=== PATIENT | female | born 1995 | race Caucasian/White ===

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

== ENCOUNTER 2021-09-11 19:36 | Emergency (ER) | payer BC, OTHER ==
[2021-09-11 21:35] LABS: HEMOGLOBIN 11.6 gm/dl (12.3-15.3); RED BLOOD COUNT 3.92 M/UL (4.00-5.10); WHITE BLOOD COUNT 4.9 K/UL (4.5-11.0)
[2021-09-11] MEDS ORDERED: MACROBID 100 M100 MG PO (21:47)
[2021-09-11 22:00] LABS: BUN/CREATININE RATIO 14 (0-10)
== END 2021-09-11 22:37 | disposition home or self-care (01) ==
LOC: ER1 19:36
PROVIDERS: Physician Assistant
DX: O99.892 Other specified diseases and conditions complicating childbirth (principal); R00.2 Palpitations; O23.42 Unspecified infection of urinary tract in pregnancy, second trimester; N39.0 Urinary tract infection, site not specified; J45.909 Unspecified asthma, uncomplicated; Z88.0 Allergy status to penicillin; Z91.013 Allergy to seafood; Z79.899 Other long term (current) drug therapy; Z3A.18 18 weeks gestation of pregnancy
CPT/HCPCS: 80048; 81001; 85025; 87086; 93005; 99285

== ENCOUNTER 2021-12-26 16:44 | Outpatient (CLI) | payer BC, OTHER ==
[~2021-12-26 16:44] MED LIST: MACROBID 100 M100 MG PO
== END 2021-12-26 17:56 | disposition home or self-care (01) ==
LOC: GENOP 16:44
DX: O99.891 Other specified diseases and conditions complicating pregnancy (principal); N89.8 Other specified noninflammatory disorders of vagina; O36.8130 Decreased fetal movements, third trimester, not applicable or unspecified; Z91.013 Allergy to seafood; Z91.018 Allergy to other foods; Z3A.33 33 weeks gestation of pregnancy
CPT/HCPCS: 59025; 81001; 82731; 83518

== ENCOUNTER 2022-01-11 15:47 | Emergency (ER) | payer BC, OTHER | END 2022-01-11 16:52 | disposition home or self-care (01) | LOC: ER1 15:47 | DX: O99.891 Other specified diseases and conditions complicating pregnancy (principal); R07.9 Chest pain, unspecified; R06.02 Shortness of breath; Z3A.36 36 weeks gestation of pregnancy | CPT/HCPCS: 71045; 99284 ==

== ENCOUNTER 2022-02-14 16:21 | Inpatient (IN) | payer BC, OTHER ==
[~2022-02-14] VITALS: Ht 162.6 cm; Wt 84.8 kg
[2022-02-14 17:01] LABS: RED BLOOD COUNT 3.53 M/UL (4.00-5.10)
[2022-02-14] MEDS ORDERED: PROAIR HFA8.5 GM INH (17:48)
[2022-02-15] MEDS ORDERED: FERROUS SULFAT325 MG PO (16:42)
[2022-02-15] MEDS ORDERED: COLACE100 MG PO (16:42)
[2022-02-15] MEDS ORDERED: IBUPROFEN600 MG PO (16:42)
[2022-02-16 06:48] LABS: HEMOGLOBIN 9.7 gm/dl (12.3-15.3)
== END 2022-02-17 16:04 | disposition home or self-care (01) | DRG 807 ==
LOC: GENOP 16:21 → OB 16:28
PROVIDERS: Obstetrics & Gynecology; ADMIT Obstetrics & Gynecology
PROC: 10E0XZZ Delivery of Products of Conception, External Approach (ICD-10-PCS; principal; 2022-02-14)
PROC: 4A1HXCZ Monitoring of Products of Conception, Cardiac Rate, External Approach (ICD-10-PCS; 2022-02-14)
PROC: 3E0234Z Introduction of Serum, Toxoid and Vaccine into Muscle, Percutaneous Approach (ICD-10-PCS; 2022-02-14)
DX: O99.02 Anemia complicating childbirth (principal); Z37.0 Single live birth; D64.9 Anemia, unspecified; Z20.822 Contact with and (suspected) exposure to COVID-19; Z3A.40 40 weeks gestation of pregnancy; Z88.2 Allergy status to sulfonamides; Z91.018 Allergy to other foods; Z82.0 Family history of epilepsy and other diseases of the nervous system; Z81.8 Family history of other mental and behavioral disorders; Z82.3 Family history of stroke; Z83.3 Family history of diabetes mellitus; Z80.9 Family history of malignant neoplasm, unspecified; Z23 Encounter for immunization
CPT/HCPCS: 36415; 81001; 85014; 85018; 85025; 90715; J0595; J2590

== ENCOUNTER 2022-03-01 23:17 | Emergency (ER) | payer BC, OTHER ==
[~2022-03-01 23:17] MED LIST changes: +COLACE100 MG PO; +FERROUS SULFAT325 MG PO; +IBUPROFEN600 MG PO; +PROAIR HFA8.5 GM INH
[2022-03-01 23:51] LABS: HEMOGLOBIN 13.1 gm/dl (12.3-15.3); RED BLOOD COUNT 4.67 M/UL (4.00-5.10)
[2022-03-02 00:15] LABS: BUN/CREATININE RATIO 15 (0-10)
[2022-03-02] MEDS ORDERED: CEPHALEXIN500 M1 PO (01:44)
== END 2022-03-02 03:05 | disposition home or self-care (01) ==
LOC: ER1 23:17
PROVIDERS: Nurse Practitioner
DX: N61.0 Mastitis without abscess (principal)
CPT/HCPCS: 80053; 81001; 83605; 85025; 85652; 86140; 87040; 93005; 96374; 99283; J0696

== ENCOUNTER 2022-04-14 09:37 | Emergency (ER) | payer BC, OTHER ==
[~2022-04-14 09:37] MED LIST changes: +CEPHALEXIN500 M1 PO
[2022-04-14 11:11] LABS: HEMOGLOBIN 11.3 gm/dl (12.3-15.3); RED BLOOD COUNT 4.06 M/UL (4.00-5.10); WHITE BLOOD COUNT 8.9 K/UL (4.5-11.0)
[2022-04-14 11:18] LABS: BUN/CREATININE RATIO 19 (0-10)
[2022-04-14] MEDS ORDERED: AMOX TR-K CLV1 EAC4 PO (12:51)
[2022-04-14] MEDS ORDERED: ZOFRAN ODT 4 MG4 MG PO (12:52)
== END 2022-04-14 13:04 | disposition home or self-care (01) ==
LOC: ER1 09:37
PROVIDERS: Physician Assistant
DX: N39.0 Urinary tract infection, site not specified (principal); K80.20 Calculus of gallbladder without cholecystitis without obstruction
CPT/HCPCS: 80053; 81001; 83605; 83690; 85025; 96374; 96375; 99284; J2270; J2405; Q9967

== ENCOUNTER → 2022-04-21 | Day surgery (SDC) | payer BC, OTHER ==
[~2022-04-21] MED LIST changes: +AMOX TR-K CLV1 EAC4 PO; +HYDROCODON-ACE1 EAC2 PO; +IBUPROFEN800 MG PO; +MULTI-VITAMIN1 EACH PO; +SERTRALINE HCL50 MG PO; +ZOFRAN ODT 4 MG4 MG PO
== END | disposition home or self-care (01) ==
LOC: OR 08:40
DX: K80.10 Calculus of gallbladder with chronic cholecystitis without obstruction (principal); K21.9 Gastro-esophageal reflux disease without esophagitis; J45.909 Unspecified asthma, uncomplicated; R55 Syncope and collapse; F41.9 Anxiety disorder, unspecified; F32.A Depression, unspecified; F17.210 Nicotine dependence, cigarettes, uncomplicated; Z79.899 Other long term (current) drug therapy; Z91.013 Allergy to seafood; Z91.018 Allergy to other foods; Z72.89 Other problems related to lifestyle
CPT/HCPCS: 84703; J0690; J1100; J1170; J1885; J2001; J2250; J2405; J2704; J2710; J3010